=== PATIENT | male | born 1990 | race Caucasian/White ===

== ENCOUNTER 2020-02-13 00:39 | Emergency (ER) | payer SELFPAY ==
[2020-02-13] MEDS ORDERED: SUBLIMAZE 100 MCG/2 ML IV ONE (00:53)
[2020-02-13] MEDS ORDERED: Phenergan 25 MG INJ IM ONE (00:53)
[2020-02-13] MEDS ORDERED: SUBLIMAZE 100 MCG/2 ML ONE (00:56)
[2020-02-13] MEDS ORDERED: Phenergan 25 MG INJ ONE (00:56)
--- NOTE | 2020-02-13 01:01 | ERPHSYRPT ---
- History of Present Illness Time Seen by Provider: 02/13/20 00:48 Source: patient Exam Limitations: no limitations Physician History: About 30 minutes ago at the ball field at [facility] [place], pt dove trying to dodge a ball and injured his left shoulder; since he cannot move his left shoulder. Pt states he has good sensation of his left hand and good rom of his left elbow, wrist and hand. Pt denies chest pain, shortness of air, fever, vomiting. Allergies/Adverse Reactions: hydrocodone Adverse Reaction (Verified 02/13/20 00:44) Vomiting Home Medications: No Reportable Medications [No Reported Medications] 02/13/20 [History] - Review of Systems Constitutional: No Fever Respiratory: No Dyspnea Cardiac: No Chest Pain Abdominal/Gastrointestinal: No Abdominal Pain, No Nausea, No Vomiting Musculoskeletal: Joint Pain (left shoulder today) All Other Systems: Reviewed and Negative - Nursing Vital Signs Nursing Vital Signs: Initial Vital Signs Temperature 97.4 F 02/13/20 00:40 Pulse Rate 90 02/13/20 00:40 Respiratory Rate 18 02/13/20 00:40 Blood Pressure 155/97 02/13/20 00:40 O2 Sat by Pulse Oximetry 99 02/13/20 00:40 Pain Scale Pain Intensity 6 - Physical Exam General Appearance: alert Eyes, Ears, Nose, Throat Exam: pharynx normal, moist mucous membranes Neck Exam: normal inspection Cardiovascular/Respiratory Exam: normal breath sounds, heart sounds normal Abdominal Exam: soft (b.s. normal) Back Exam: normal inspection Shoulder Exam: limited ROM (no active rom of left shoulder; good sensation, rom & capillary refill of all digits of the left hand.) Wrist Exam: normal ROM Hand Exam: normal ROM Neuro/Tendon Exam: normal sensation Mental Status Exam: alert, cooperative Skin Exam: warm, dry SpO2 Interpretation: normal SpO2: 99 O2 Delivery: Room Air - Course Nursing assessment & vital signs reviewed: Yes - Radiology Exams Left Shoulder X-ray Interpretation: Teleradiologist Report (Anterior humeral dislocation with an age-indeterminate Hill-Sachs impaction fracture of the posterior humeral head. Small probably acute fracture fragment adjacent to the posteroinferior humeral head and inferior glenoid, donor site not identified.) Ordered Tests: Active Orders 24 hr Category Date Time Status IV Insertion STAT Care 02/13/20 00:53 Active SHOULDER Stat Exams 02/13/20 00:53 Taken Medication Summary Discontinued Medications Generic Name Dose Route Start Last Admin Trade Name Angel PRN Reason Stop Dose Admin Fentanyl Citrate 100 mcg 02/13/20 00:53 02/13/20 00:57 Sublimaze 100 Mcg/2 Ml IV 02/13/20 00:54 100 mcg STAT ONE Administration Fentanyl Citrate Confirm 02/13/20 00:56 Sublimaze 100 Mcg/2 Ml Administered 02/13/20 00:57 Dose 100 mcg .ROUTE .STK-MED ONE Hydromorphone HCl 1 mg 02/13/20 02:15 Hydromorphone 1 Mg/Ml Injection IV 02/13/20 02:16 STAT ONE Morphine Sulfate 4 mg 02/13/20 01:19 02/13/20 01:42 Morphine Sulfate 4 Mg Inj IV 02/13/20 01:20 4 mg STAT ONE Administration Morphine Sulfate Confirm 02/13/20 01:39 Morphine Sulfate 4 Mg Inj Administered 02/13/20 01:40 Dose 4 mg .ROUTE .STK-MED ONE Morphine Sulfate 4 mg 02/13/20 01:53 02/13/20 01:58 Morphine Sulfate 4 Mg Inj IV 02/13/20 01:54 4 mg STAT ONE Administration Morphine Sulfate Confirm 02/13/20 01:57 Morphine Sulfate 4 Mg Inj Administered 02/13/20 01:58 Dose 4 mg .ROUTE .STK-MED ONE Ondansetron HCl 4 mg 02/13/20 02:15 Zofran 4 Mg/2 Ml Vial IV 02/13/20 02:16 STAT ONE Promethazine HCl 25 mg 02/13/20 00:53 02/13/20 00:57 Phenergan 25 Mg Inj IM 02/13/20 00:54 25 mg STAT ONE Administration Promethazine HCl Confirm 02/13/20 00:56 Phenergan 25 Mg Inj Administered 02/13/20 00:57 Dose 25 mg .ROUTE .STK-MED ONE - Progress Progress: unchanged Discussed with : Other (Spoke with Dr. Martin([id number]) who accepted pt for transfer to [facility].) Counseled pt/family regarding: rad results - Departure Departure Disposition: Transfer ([facility]) Clinical Impression: Fracture/Dislocation of left shoulder Condition: Stable Critical Care Time: No Referrals: DOCTOR,NO FAMILY [Primary Care Provider] -
[2020-02-13] MEDS ORDERED: MORPHINE SULFATE 4 MG INJ IV ONE ×2 (01:19→01:53)
[2020-02-13] MEDS ORDERED: MORPHINE SULFATE 4 MG INJ ONE ×2 (01:39→01:57)
[2020-02-13] MEDS ORDERED: Hydromorphone 1 mg/ml Injection IV ONE (02:15)
[2020-02-13] MEDS ORDERED: Zofran 4 MG/2 ML VIAL IV ONE (02:15)
[2020-02-13 02:16] VITALS: BP 125/86; PULSE 80
[2020-02-13] MEDS ORDERED: Hydromorphone 1 mg/ml Injection ONE (02:19)
[2020-02-13] MEDS ORDERED: Zofran 4 MG/2 ML VIAL ONE (02:19)
[2020-02-13 02:23] VITALS: O2SAT 99
[2020-02-13] MEDS ORDERED: Sodium Chloride 0.9% 1000 ML 1,000 ML IV SCH (02:30)
[2020-02-13] MEDS ORDERED: Sodium Chloride 0.9% 1000 ML 1,000 ML ONE (02:45)
--- NOTE | 2020-02-13 07:31 | XRAY ---
Indication: Pain following fall. Comparison: None 2 view left shoulder demonstrates anterior inferior humeral head dislocation and humeral head fracture with tiny fracture fragment displaced inferior to the glenoid process. Also Hill-Sachs deformity of uncertain chronicity and left lung base atelectasis. No other bony, articular, or soft tissue abnormalities. Comment: Preliminary interpretation was made by [facility]. No critical discrepancy.
== END 2020-02-13 02:50 | disposition short-term general hospital (02) ==
LOC: ED 00:39
DX: S42.92XA Fracture of left shoulder girdle, part unspecified, initial encounter for closed fracture (principal); S43.005A Unspecified dislocation of left shoulder joint, initial encounter; X50.0XXA Overexertion from strenuous movement or load, initial encounter; X50.9XXA Other and unspecified overexertion or strenuous movements or postures, initial encounter; Y93.02 Activity, running; Y92.320 Baseball field as the place of occurrence of the external cause
CPT/HCPCS: 36000; 73030; 96372; 96374; 96375; 96376; 99285; J1170; J2270; J2405; J2550; J3010